=== PATIENT | male | born 1985 | race African-American/Black ===

== ENCOUNTER 2017-06-07 11:46 | Emergency (ER) | payer SELFPAY ==
[2017-06-07 11:50] VITALS: BP 150/77; PULSE 86; TEMP 98.3; BMI 27.1
--- NOTE | 2017-06-07 12:22 | PDOC ---
History of Present Illness - General Chief Complaint: Eye Problem Stated Complaint: FOREIGN SUBSTANCE IN EYE Time Seen by Provider: 06/07/17 12:09 History Source: Patient Exam Limitations: No Limitations - History of Present Illness Initial Comments: 06/07/17 12:17 32 yr male with c/o fb sensation to the right eye. Pt states he had pieces of metal get in his eye about 5 days ago at work, went home and removed them with a magnet. Pt then went to another ER (06/05) where they removed a piece of metal with a needle and was placed on antibitoic eye drops. Pt states he feels better but is here for second opinion. no redness no drainage no photophobia or changes in vision. 06/07/17 12:30 Past History - Past Medical History Allergies/Adverse Reactions: Allergies Allergy/AdvReac Type Severity Reaction Status Date / Time No Known Allergies Allergy Verified 06/07/17 11:50 Home Medications: Ambulatory Orders Sulfamethoxazole/Trimethoprim [Bactrim DS -] 1 tab PO BID #20 tablet 12/12/15 Psychiatric Problems: No (DENIES) - Surgical History Appendectomy: Yes (2009) - Immunization History Immunization Up to Date: Yes - Psycho/Social/Smoking Cessation Hx Anxiety: No Suicidal Ideation: No Smoking Status: Yes Smoking History: Never smoked Have you smoked in the past 12 months: Yes Number of Cigarettes Smoked Daily: 20 'Breaking Loose' booklet given: 12/12/15 Hx Alcohol Use: No Drug/Substance Use Hx: No Substance Use Type: None Hx Substance Use Treatment: No *Physical Exam - Vital Signs Last Vital Signs Temp Pulse Resp BP Pulse Ox 98.3 F 86 18 150/77 100 06/07/17 11:48 06/07/17 11:48 06/07/17 11:48 06/07/17 11:48 06/07/17 11:48 - Physical Exam General Appearance: Yes: Nourished, Appropriately Dressed HEENT: positive: EOMI, REBECCA Neck: positive: Supple. negative: Tender Respiratory/Chest: positive: Lungs Clear, Normal Breath Sounds Cardiovascular: positive: Regular Rhythm, Regular Rate Extremity: positive: Normal Inspection, Normal Range of Motion Integumentary: positive: Normal Color, Dry, Warm Neurologic: positive: Fully Oriented, Alert, Normal Mood/Affect, Normal Response , Motor Strength 5/5 Procedures - Eye Procedure Alcaine Drops Administered: Yes Progress: 06/07/17 12:36 neg fluoroscein uptake no fb seen no corneal abrasion Medical Decision Making - Medical Decision Making 06/07/17 12:18 cc: right eye fb sensation no tearing no photophobia, no change in vision neg fluroscein uptake visual acuity 20/20 both eyes will refer to the eye doctor for follow up pt understands the need for strict follow up and understands to continue the eye drops as directed 06/07/17 12:36 *DC/Admit/Observation/Transfer Diagnosis at time of Disposition: Sensation of foreign body in eye - Referrals Referrals: Jay Nguyen [Staff Physician] - - Patient Instructions Additional Instructions: please follow up with the opthomologist Dr. Nguyen call Thursday to make appointment with the eye doctor continue to use the eye drops as directed
== END 2017-06-07 12:35 | disposition home or self-care (01) ==
LOC: JERFT 11:46
DX: T15.91XA Foreign body on external eye, part unspecified, right eye, initial encounter (principal); X58.XXXA Exposure to other specified factors, initial encounter; Y93.89 Activity, other specified; Y92.512 Supermarket, store or market as the place of occurrence of the external cause; Y99.0 Civilian activity done for income or pay
CPT/HCPCS: 99281-25

== ENCOUNTER 2019-06-28 17:00 | Emergency (ER) | payer OTHER ==
--- NOTE | 2019-06-28 17:16 | PDOC ---
Rapid Medical Evaluation Medical Evaluation: Allergies Allergy/AdvReac Type Severity Reaction Status Date / Time No Known Allergies Allergy Verified 06/07/17 11:50 I have performed a brief in-person evaluation of this patient. 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 06/28/19 17:14 Discharge Disposition - Referrals Referrals: Nacho Rodriguez MD [Primary Care Provider] - - Patient Instructions - Post Discharge Activity
[2019-06-28 17:18] VITALS: BP 144/75; PULSE 101; TEMP 97.6; BMI 28.5
[2019-06-28] MEDS ORDERED: FLUORESCEIN NA 1 EA STRIP ONE (17:22)
[2019-06-28] MEDS ORDERED: TETRACAINE 0.5% OPHTH SOLN 2 ML BOTTLE ONE (17:22)
--- NOTE | 2019-06-28 17:35 | PDOC ---
History of Present Illness - General Chief Complaint: Foreign Body (FB) Stated Complaint: METAL IN THE EYE Time Seen by Provider: 06/28/19 17:14 - History of Present Illness Initial Comments: 06/28/19 17:29 34 y/o M w/o CM presents for evaluation of R eye irritation. He states while working cutting metal he felt a piece of metal enter his R eye. He immediately flushed it but has ongoing irritation sine this occurred at 9 am this morning. He is current on tetanus. Past History - Past Medical History Allergies/Adverse Reactions: Allergies Allergy/AdvReac Type Severity Reaction Status Date / Time No Known Allergies Allergy Verified 06/28/19 17:18 Home Medications: Ambulatory Orders Sulfamethoxazole/Trimethoprim [Bactrim DS -] 1 tab PO BID #20 tablet 12/12/15 Tobramycin 0.3% Ophth Soln [Tobrex Ophthalmic Solution -] 1 drop OD Q4HWA #1 bottle 06/28/19 COPD: No Psychiatric Problems: No (DENIES) - Surgical History Appendectomy: Yes (2009) - Immunization History Immunization Up to Date: Yes - Suicide/Smoking/Psychosocial Hx Smoking Status: Yes Smoking History: Current every day smoker Have you smoked in the past 12 months: No Number of Cigarettes Smoked Daily: 20 Information on smoking cessation initiated: Yes 'Breaking Loose' booklet given: 12/12/15 Hx Alcohol Use: No Drug/Substance Use Hx: No Substance Use Type: None Hx Substance Use Treatment: No Review of Systems - Review of Systems HEENTM: Yes: Eye Pain, Tearing *Physical Exam - Vital Signs Last Vital Signs Temp Pulse Resp BP Pulse Ox 97.6 F 101 H 17 144/75 99 06/28/19 17:15 06/28/19 17:15 06/28/19 17:15 06/28/19 17:15 06/28/19 17:15 - Physical Exam General Appearance: Yes: Nourished, Appropriately Dressed. No: Apparent Distress, Disheveled HEENT: positive: EOMI, REBECCA, Symmetrical, Other (Tetracaine was instilled and the R eye was stained with floricine and examined. There is a clrneal abrasion at the 9 o'clock position without indication of a retained FB ) Medical Decision Making - Medical Decision Making 06/28/19 17:33 No FB appreciated will treat for CA and have pt f/u with opto *DC/Admit/Observation/Transfer Diagnosis at time of Disposition: Corneal abrasion - Discharge Dispostion Disposition: HOME Condition at time of disposition: Stable Decision to Admit order: No - Referrals Referrals: Nacho Rodriguez MD [Primary Care Provider] - Nicole Duran MD [Staff Physician] - - Patient Instructions Additional Instructions: Please, without fail, follow up with optomology in 1-2 days. Use the antibiotic drops as directed. And return to the emergency room should symptoms worsen. - Post Discharge Activity
== END 2019-06-28 18:57 | disposition home or self-care (01) ==
LOC: JERFT 17:00
DX: S05.02XA Injury of conjunctiva and corneal abrasion without foreign body, left eye, initial encounter (principal); W20.8XXA Other cause of strike by thrown, projected or falling object, initial encounter; Y93.89 Activity, other specified; Y92.69 Other specified industrial and construction area as the place of occurrence of the external cause; Y99.0 Civilian activity done for income or pay
CPT/HCPCS: 99281-25

== ENCOUNTER 2020-05-10 06:10 | Emergency (ER) | payer OTHER ==
[2020-05-10 06:46] VITALS: BP 158/87; PULSE 95; TEMP 97.6; BMI 27.1
--- NOTE | 2020-05-10 07:09 | PDOC ---
History of Present Illness - General Chief Complaint: Pain, Acute Stated Complaint: PAIN Time Seen by Provider: 05/10/20 07:09 - History of Present Illness Initial Comments: 05/10/20 07:36 35 year old man with no pmhx who presents with L sided neck started after he was playing guitar and bobbing his head two days ago. He describes his pain as whip lash. He took an advil and bought a soft collar. He endorses stiffness but denie s any numbness, tingling or weakness in the arms. ROS GENERAL/CONSTITUTIONAL: No fever or chills. No weakness. HEAD, EYES, EARS, NOSE AND THROAT: No change in vision. No ear pain or discharge. No sore throat. CARDIOVASCULAR: No chest pain or shortness of breath RESPIRATORY: No cough, wheezing, or hemoptysis. GASTROINTESTINAL: No nausea, vomiting, diarrhea or constipation. GENITOURINARY: No dysuria, frequency, or change in urination. MUSCULOSKELETAL: + joint or muscle swelling or pain. No neck or back pain. SKIN: No rash NEUROLOGIC: No headache, vertigo, loss of consciousness, or change in str ength/sensation. ENDOCRINE: No increased thirst. No abnormal weight change HEMATOLOGIC/LYMPHATIC: No anemia, easy bleeding, or history of blood clots. ALLERGIC/IMMUNOLOGIC: No hives or skin allergy. PE GENERAL: Awake, alert, and fully oriented, in no acute distress HEAD: No signs of trauma, normocephalic, atraumatic EYES: EOMI, sclera anicteric, conjunctiva clear ENT: oropharynx clear without exudates. Moist mucosa NECK: Limited ROM 2/2 pain, ttp along LUNGS: No distress, speaks full sentences, clear to auscultation bilaterally HEART: Regular rate and rhythm, normal S1 and S2, no murmurs, rubs or gallops, peripheral pulses normal and equal bilaterally. ABDOMEN: Soft, nontender. No guarding, no rebound. No masses EXTREMITIES : Normal inspection, Normal range of motion, no edema. No clubbing or cyanosis. NEUROLOGICAL: Cranial nerves II through XII grossly intact. Normal speech, no focal sensorimotor deficits SKIN: Warm, Dry, normal turgor, no rashes or lesions noted Assessment and Plan Lelia Cabrales, PGY2 Emergency Medicine Past History - Medical History Allergies/Adverse Reactions: Allergies Allergy/AdvReac Type Severity Reaction Status Date / Time No Known Allergies Allergy Verified 05/10/20 06:44 Home Medications: Ambulatory Orders Cyclobenzaprine HCl [Flexeril -] 10 mg PO HS #3 tablet 05/10/20 Ibuprofen [Ibu] 600 mg PO DAILY 5 Days #5 tablet 05/10/20 Lidocaine 5% Patch [Lidoderm Patch -] 1 patch TP DAILY #7 patch 05/10/20 COPD: No Psychiatric Problems: No (DENIES) - Surgical History Appendectomy: Yes (2009) - Immunization History Immunization Up to Date: Yes - Psycho-Social/Smoking History Smoking Status: Yes Smoking History: Current every day smoker Have you smoked in the past 12 months: Yes Number of Cigarettes Smoked Daily: 10 Information on smoking cessation initiated: No 'Breaking Loose' booklet given: 12/12/15 - Substance Abuse Hx (Audit-C & DAST Scrn) How often the patient has a drink containing alcohol: Never Score: In Men: 4 or > Positive; In Women: 3 or > Positive: 0 Screen Result (Pos requires Nsg. Audit-10AR): Negative In the last yr the pt used illegal drug/Rx for NonMed reason: No Score: Yes response is considered Positive: 0 Screen Result (Positive result requires Nsg. DAST-10): Negative *Physical Exam - Vital Signs Last Vital Signs Temp Pulse Resp BP Pulse Ox 97.6 F 95 H 20 158/87 99 05/10/20 06:44 05/10/20 06:44 05/10/20 06:44 05/10/20 06:44 05/10/20 06:44 Discharge - Discharge Information Problems reviewed: Yes Clinical Impression/Diagnosis: Muscle strain Condition: Stable Disposition: HOME - Follow up/Referral - Patient Discharge Instructions Additional Instructions: You were seen in the ER for neck muscle strain You had improvement with muscle relaxers and pain medications You have these prescribed to you and you should take them as prescribed Please see your Primary Care Physician within 1 week Return to the ER immediately if you develop worsening pain, numbness, weakness, tingling or any other concerning symptoms - Post Discharge Activity
[2020-05-10] MEDS ORDERED: IBUPROFEN 600 MG TABLET (FP) PO ONE ×2 (07:31→08:17)
[2020-05-10] MEDS ORDERED: LIDOCAINE 5% TOPICAL PATCH TP ONE (07:32)
--- NOTE | 2020-05-10 07:57 | PDOC ---
Attending Attestation - Resident Resident Name: Lelia Cabrales - ED Attending Attestation I have performed the following: I have examined & evaluated the patient, The case was reviewed & discussed with the resident, I agree w/resident's findings & plan, Exceptions are as noted - HPI HPI: 05/10/20 07:56 35y M no pmhx presents with L sided neck pain after playing guiatr 2 days ago and rocking out. Yesterday, he developed moderate neck pain omar has gradually wosened. The pain was worse at the base of the skull and now is radiating to his trapezius. He denies any focal numbness, tingling, weakness. No trauma/falls/injuries. Denies fever, chills, headache, ear pain. he went to a massage therapist yesterday due to the pain however feels he has gotten worse. Patient notes that the pain is worse when he moves his head and when he tries to look down and when he tries to get up from a laying position. He took Advil last night without significant improvement. No prior history of neck pain or injury. - Physicial Exam PE: 05/10/20 08:43 Exam: GENERAL: The patient is awake, alert, and fully oriented, Nontoxic - in no acute distress. HEAD: Normocephalic, atraumatic. EYES: extraocular movements intact, sclera anicteric, conjunctiva clear. NECK: Tenderness to palpation at the insertion of the posterior neck muscles into the scalp as well as in bilateral trapezius. No bruits, no anterior neck tenderness. No midline tenderness in the cervical, thoracic or lumbar region., No rashes present - Medical Decision Making 05/10/20 08:43 Suspect muscle strain from his "rocking out". No focal bony tenderness to suggest bony injury. No neurovascular suspected based on clinical exam Will treat with Flexeril, Toradol, Lidoderm patch. Supportive care at home 05/10/20 08:43 Discharge - Discharge Information Problems reviewed: Yes Clinical Impression/Diagnosis: Muscle strain Condition: Stable Disposition: HOME - Admission No - Additional Discharge Information Prescriptions: Cyclobenzaprine HCl [Flexeril -] 10 mg PO HS #10 tablet Ibuprofen [Ibu] 600 mg PO DAILY 5 Days #5 tablet Lidocaine 5% Patch [Lidoderm Patch -] 1 patch TP DAILY #7 patch - Follow up/Referral - Patient Discharge Instructions Additional Instructions: You were seen in the ER for neck muscle strain You had improvement with muscle relaxers and pain medications You have these prescribed to you and you should take them as prescribed Please see your Primary Care Physician within 1 week Return to the ER immediately if you develop worsening pain, numbness, weakness, tingling or any other concerning symptoms - Post Discharge Activity
[2020-05-10] MEDS ORDERED: LIDOCAINE 5% TOPICAL PATCH ONE (08:18)
[2020-05-10] MEDS ORDERED: KETOROLAC TROMETHAMINE 15 MG/ML VIAL IM ONE (08:20)
[2020-05-10] MEDS ORDERED: CYCLOBENZAPRINE HCL 10 MG TABLET (FP) PO ONE (08:20)
[2020-05-10] MEDS ORDERED: KETOROLAC TROMETHAMINE 30 MG/1 ML VIAL IM ONE (08:36)
[2020-05-10] MEDS ORDERED: LIDOCAINE PATCH REMOVAL MC SCH (22:00)
== END 2020-05-10 09:20 | disposition home or self-care (01) ==
LOC: JER 06:10
PROC: 3E0333Z Introduction of Anti-inflammatory into Peripheral Vein, Percutaneous Approach (ICD-10-PCS; principal; 2020-05-10)
DX: S16.1XXA Strain of muscle, fascia and tendon at neck level, initial encounter (principal)
CPT/HCPCS: 99284-25

== ENCOUNTER 2020-05-13 18:22 | Emergency (ER) | payer OTHER ==
[2020-05-13 18:29] VITALS: BP 145/83; PULSE 102; TEMP 98; BMI 27.1
[2020-05-13] MEDS ORDERED: KETOROLAC TROMETHAMINE 60 MG/2 ML VIAL IM ONE (19:10)
[2020-05-13] MEDS ORDERED: KETOROLAC TROMETHAMINE 60 MG/2 ML VIAL ONE (19:12)
[2020-05-13] MEDS ORDERED: DEXAMETHASONE SOD PHOSPHATE 10 MG/1 ML VIAL IM ONE (19:33)
--- NOTE | 2020-05-13 19:38 | PDOC ---
History of Present Illness - General Chief Complaint: Sore Throat Stated Complaint: TONSILS Time Seen by Provider: 05/13/20 19:06 History Source: Patient - History of Present Illness Timing/Duration: reports: this evening Severity: reports: moderate Associated Symptoms: denies: cough, facial pain Past History - Medical History Allergies/Adverse Reactions: Allergies Allergy/AdvReac Type Severity Reaction Status Date / Time No Known Allergies Allergy Verified 05/13/20 18:29 Home Medications: Ambulatory Orders Cyclobenzaprine HCl [Flexeril -] 10 mg PO HS #10 tablet 05/10/20 Ibuprofen [Ibu] 600 mg PO DAILY 5 Days #5 tablet 05/10/20 Lidocaine 5% Patch [Lidoderm Patch -] 1 patch TP DAILY #7 patch 05/10/20 COPD: No Psychiatric Problems: No (DENIES) - Surgical History Appendectomy: Yes (2009) - Immunization History Immunization Up to Date: Yes - Psycho-Social/Smoking History Smoking Status: Yes Smoking History: Never smoked Have you smoked in the past 12 months: Yes Number of Cigarettes Smoked Daily: 10 'Breaking Loose' booklet given: 12/12/15 - Substance Abuse Hx (Audit-C & DAST Scrn) How often the patient has a drink containing alcohol: Never Score: In Men: 4 or > Positive; In Women: 3 or > Positive: 0 Screen Result (Pos requires Nsg. Audit-10AR): Negative Review of Systems - Review of Systems Constitutional: No: Chills, Fever HEENTM: Yes: Throat Pain, Throat Swelling Respiratory: No: Cough, Shortness of Breath, Stridor *Physical Exam - Vital Signs Last Vital Signs Temp Pulse Resp BP Pulse Ox 98 F 102 H 18 145/83 100 05/13/20 18:26 05/13/20 18:26 05/13/20 18:26 05/13/20 18:26 05/13/20 18:26 - Physical Exam General Appearance: Yes: Appropriately Dressed. No: Apparent Distress HEENT: positive: Normal Voice, Other (enlarged uvula, tonsils wnl, no exudates) Neck: positive: Supple. negative: Lymphadenopathy (R), Lymphadenopathy (L) Respiratory/Chest: negative: Respiratory Distress, Stridor Integumentary: positive: Dry, Warm Neurologic: positive: Fully Oriented, Alert, Normal Mood/Affect ED Treatment Course - Medications Given in the ED: ED Medications Discontinued Medications Generic Name Dose Route Start Last Admin Trade Name Atilio PRN Reason Stop Dose Admin Ketorolac Tromethamine 60 mg 05/13/20 19:10 05/13/20 19:16 Toradol Injection - IM 05/13/20 19:11 60 mg ONCE ONE Administration Medical Decision Making - Medical Decision Making 05/13/20 19:33 35 yo male, no sig hx, here w/ "throat swelling and pain" after waking from nap this afternoon. Does snore. No ETOH intake prior to sleeping. No other uri sxs, f/c, sob or stridor. No new meds see exam Uvulitis, m/l 2/2 snoring given hx Rapid strep neg Unlikely allergy Dose of toradol and decadron given in ED Dc to take motrin prn, hydration, gargle w/ warm salt water to reduce swelling To return as needed 05/13/20 20:17 Signed out to RASTA Holland pending strep results 05/15/20 08:56 Discharge - Discharge Information Problems reviewed: Yes Clinical Impression/Diagnosis: Uvulitis Condition: Improved Disposition: HOME - Follow up/Referral - Patient Discharge Instructions Patient Printed Discharge Instructions: DI for Uvulitis Additional Instructions: Your uvula is inflamed Snoring can cause this. So can allergic reaction and infection Your strep test was negative Take motrin as needed, rest, hydrate and gargle w/ warm salt water to further reduce swelling - Post Discharge Activity Work/Back to School Note: Back to Work
--- NOTE | 2020-05-13 21:24 | PDOC ---
*Physical Exam - Vital Signs Last Vital Signs Temp Pulse Resp BP Pulse Ox 98 F 102 H 18 145/83 100 05/13/20 18:26 05/13/20 18:26 05/13/20 18:26 05/13/20 18:26 05/13/20 18:26 ED Treatment Course - Medications Given in the ED: ED Medications Discontinued Medications Generic Name Dose Route Start Last Admin Trade Name Atilio PRN Reason Stop Dose Admin Dexamethasone Sodium Phosphate 10 mg 05/13/20 19:33 05/13/20 19:45 Decadron Injection - IM 05/13/20 19:34 10 mg ONCE ONE Administration Ketorolac Tromethamine 60 mg 05/13/20 19:10 05/13/20 19:16 Toradol Injection - IM 05/13/20 19:11 60 mg ONCE ONE Administration ED Progress Note - Progress Note Progress Note: 05/13/20 21:23 Rapid strep result pending Patient wishes to leave, will enter a follow-up order on his results However he reports he feels better after medications Tolerating p.o. Discharge - Discharge Information Problems reviewed: Yes Clinical Impression/Diagnosis: Uvulitis Condition: Improved Disposition: HOME - Follow up/Referral - Patient Discharge Instructions Patient Printed Discharge Instructions: DI for Uvulitis Additional Instructions: Your uvula is inflamed Snoring can cause this. So can allergic reaction and infection Your strep test was negative Take motrin as needed, rest, hydrate and gargle w/ warm salt water to further reduce swelling - Post Discharge Activity Work/Back to School Note: Back to Work
--- NOTE | 2020-05-13 21:26 | PDOC ---
*Physical Exam - Vital Signs Last Vital Signs Temp Pulse Resp BP Pulse Ox 98 F 102 H 18 145/83 100 05/13/20 18:26 05/13/20 18:26 05/13/20 18:26 05/13/20 18:26 05/13/20 18:26 ED Treatment Course - Medications Given in the ED: ED Medications Discontinued Medications Generic Name Dose Route Start Last Admin Trade Name Atilio PRN Reason Stop Dose Admin Dexamethasone Sodium Phosphate 10 mg 05/13/20 19:33 05/13/20 19:45 Decadron Injection - IM 05/13/20 19:34 10 mg ONCE ONE Administration Ketorolac Tromethamine 60 mg 05/13/20 19:10 05/13/20 19:16 Toradol Injection - IM 05/13/20 19:11 60 mg ONCE ONE Administration ED Progress Note - Progress Note Progress Note: 05/13/20 21:26 Negative strep throat Patient informed of these results Discharge - Discharge Information Problems reviewed: Yes Clinical Impression/Diagnosis: Uvulitis Condition: Improved Disposition: HOME - Follow up/Referral - Patient Discharge Instructions Patient Printed Discharge Instructions: DI for Uvulitis Additional Instructions: Your uvula is inflamed Snoring can cause this. So can allergic reaction and infection Your strep test was negative Take motrin as needed, rest, hydrate and gargle w/ warm salt water to further reduce swelling - Post Discharge Activity Work/Back to School Note: Back to Work
== END 2020-05-13 21:27 | disposition home or self-care (01) ==
LOC: JERFT 18:22
PROC: 3E0233Z Introduction of Anti-inflammatory into Muscle, Percutaneous Approach (ICD-10-PCS; principal; 2020-05-13)
PROC: 3E023GC Introduction of Other Therapeutic Substance into Muscle, Percutaneous Approach (ICD-10-PCS; 2020-05-13)
DX: K12.2 Cellulitis and abscess of mouth (principal)
CPT/HCPCS: 87070; 87880; 99284-25; J1100